=== PATIENT | male | born 1995 | race Caucasian/White ===

== ENCOUNTER 2016-08-12 06:29 | Emergency (ER) | payer OTHER ==
[~2016-08-12] VITALS: Ht 162.6 cm; Wt 59.4 kg
[2016-08-12 07:18] VITALS: BP 110/71
== END 2016-08-12 07:18 | disposition home or self-care (01) ==
LOC: ED 06:29
DX: R19.7 Diarrhea, unspecified (principal); R11.2 Nausea with vomiting, unspecified; R10.13 Epigastric pain

== ENCOUNTER 2016-08-23 11:29 | Emergency (ER) | payer OTHER ==
[~2016-08-23] VITALS: Ht 162.6 cm; Wt 58.1 kg
[2016-08-23 14:01] LABS: BASOPHIL % 0.2 % (0-2); CALCIUM 9.7 mg/dL (8.5-10.1); CARBON DIOXIDE 29.5 mmol/L (21-32); CHLORIDE SERUM 101 mmol/L (98-107); GFR1 > 60 mL/min; GLUCOSE SERUM 91 mg/dL (74-106); PLATELET COUNT 165 x10^3mcL (130-400); POTASSIUM SERUM 4.8 mmol/L (3.5-5.1); RED CELL DISTRIBUTION WIDTH 13.2 % (11.5-14.5); SODIUM SERUM 137 mmol/L (136-145)
[2016-08-23 14:06] LABS: ALKALINE PHOSPHATASE 96 U/L (46-116); ALT/SGPT 19 U/L (16-63); AMYLASE 79 U/L (25-115); AST/SGOT 20 U/L (15-37); BILIRUBIN TOTAL 0.9 mg/dL (0.20-1.00); LIPASE 128 IU/L (73-393); TOTAL PROTEIN, SERUM 8.4 g/dL (6.4-8.2)
[2016-08-23 14:40] LABS: microscopic required? NO
[2016-08-23 14:47] LABS: UA SPECIFIC GRAVITY 1.015 (1.005-1.035); urine erythrocyte NEGATIVE (NEGATIVE)
[2016-08-23 15:00] LABS: AMPHETAMINE QUAL UR NONE DETECTED (NEG <=1000)
[2016-08-23 15:48] VITALS: BP 135/72
== END 2016-08-23 16:38 | disposition home or self-care (01) ==
LOC: ED 11:29
PROVIDERS: Emergency Medicine
DX: G43.A0 Cyclical vomiting, in migraine, not intractable (principal); R19.7 Diarrhea, unspecified; F12.90 Cannabis use, unspecified, uncomplicated; R10.13 Epigastric pain
CPT/HCPCS: J0500; J3490; J7030